=== PATIENT | female | born 1970 | race Caucasian/White ===

== ENCOUNTER 2021-03-14 23:52 | Emergency (ER) | payer MEDICAID, OTHER ==
[~2021-03-14] VITALS: Ht 152.4 cm; Wt 71.2 kg
[2021-03-15 00:13] VITALS: BP 186/91
--- NOTE | 2021-03-15 00:25 | NUR ---
PATIENT BIB SELF FOR C/O LEFT WRIST PAIN 07/10 THAT RADIATES TO LEFT CHEST WALL INTERMITTENTLY X 2 WEEKS. A & O X4. AMBULATORY. PATIENT STATES "I SAW THE DOCTOR ON January, HE SAID I HAVE TENDONITIS IN MY WRIST." CMS INTACT. SKIN IS WARM, DRY AND INTACT. CAP REFILL < 3 SECOND. BILATERAL RADIAL PULSES EQUAL AND STRONG. NO NOTED RESPIRATORY DISTRESS. PATIENT DENIES FEVER, CHILLS. PATIENT IS RESTING COMFORTABLE IN BED, HOB ELEVATED, BED LOCKED IN LOWEST POSITION, BED RAIL X 1. SEE COMPLETE ASSESSMENT FOR FURTHER DETAILS. MED HX: DENIES ALLERGIES: NKA
--- NOTE | 2021-03-15 00:55 | NUR ---
ERMD AT BEDSIDE.
[2021-03-15] MEDS ORDERED: KETOROLAC 30 MG/ML VIAL IM ONE (01:05)
[2021-03-15] MEDS ORDERED: diazePAM 5 MG TAB PO ONE (01:05)
--- NOTE | 2021-03-15 02:20 | NUR ---
WRIST AND FOREARM SPLINT PLACED ON PT L ARM AND FASTENED. +CSM
[2021-03-15] MEDS ORDERED: CYCL-654 PO (03:13)
[2021-03-15 03:30] VITALS: BP 138/88
--- NOTE | 2021-03-15 03:30 | NUR ---
Patient discharged with v/s stable. Written and verbal after care instructions given and explained. Patient alert, oriented and verbalized understanding of instructions. Ambulatory with steady gait. All questions addressed prior to discharge. ID band removed. Patient advised to follow up with PMD. Rx of CYCLOBENZAPRINE given. Patient educated on indication of medication including possible reaction and side effects. Opportunity to ask questions provided and answered.
== END 2021-03-15 03:30 | disposition home or self-care (01) ==
LOC: MED 23:52
DX: M77.8 Other enthesopathies, not elsewhere classified (principal); Z79.899 Other long term (current) drug therapy
CPT/HCPCS: 29125; 73110; 96372; 99283; J1885